=== PATIENT | male | born 1985 | race Caucasian/White ===

== ENCOUNTER 2019-01-31 23:21 | Emergency (ER) | payer OTHER ==
[~2019-01-31] VITALS: Ht 177.8 cm; Wt 73.5 kg
[2019-01-31] MEDS ORDERED: LEVAQUIN 500 M500 M3 PO (23:53)
[2019-01-31] MEDS ORDERED: HYDROCODON-ACE1 EAC8 PO (23:53)
[2019-01-31] MEDS ORDERED: ROBAXIN 750 MG750 MG PO (23:54)
[2019-02-01 00:11] VITALS: BP 128/88
== END 2019-02-01 00:11 | disposition home or self-care (01) ==
LOC: M.ERS 23:21
DX: S60.221A Contusion of right hand, initial encounter (principal); S60.211A Contusion of right wrist, initial encounter; S60.222A Contusion of left hand, initial encounter; S00.212A Abrasion of left eyelid and periocular area, initial encounter; M79.18 Myalgia, other site; M54.6 Pain in thoracic spine; M54.2 Cervicalgia; V89.2XXA Person injured in unspecified motor-vehicle accident, traffic, initial encounter; Y92.89 Other specified places as the place of occurrence of the external cause; Y93.89 Activity, other specified; Y99.8 Other external cause status

== ENCOUNTER 2019-02-09 16:30 | Emergency (ER) | payer OTHER ==
[~2019-02-09] VITALS: Ht 180.3 cm; Wt 68.0 kg
[~2019-02-09 16:30] MED LIST: HYDROCODON-ACE1 EAC8 PO; LEVAQUIN 500 M500 M3 PO; ROBAXIN 750 MG750 MG PO
[2019-02-09] MEDS ORDERED: MEDROLDOSEPACK PO (17:02)
[2019-02-09] MEDS ORDERED: IBUPROFEN 800800 M1 PO (17:03)
[2019-02-09] MEDS ORDERED: NORCO 5-325 TA1 EAC1 PO (17:04)
[2019-02-09 17:25] VITALS: BP 107/72
== END 2019-02-09 17:27 | disposition home or self-care (01) ==
LOC: M.ERS 16:30
DX: M54.12 Radiculopathy, cervical region (principal); M54.9 Dorsalgia, unspecified; M41.9 Scoliosis, unspecified; Z88.0 Allergy status to penicillin; Z91.011 Allergy to milk products

== ENCOUNTER 2019-02-20 19:23 | Emergency (ER) | payer OTHER ==
[~2019-02-20] VITALS: Ht 177.8 cm; Wt 73.1 kg
[~2019-02-20 19:23] MED LIST changes: +IBUPROFEN 800800 M1 PO; +MEDROLDOSEPACK PO; +NORCO 5-325 TA1 EAC1 PO
[2019-02-20] MEDS ORDERED: FLEXERIL PO (19:52)
[2019-02-20] MEDS ORDERED: HYDROCODON-ACE1 EAC7 PO (19:52)
[2019-02-20] MEDS ORDERED: IBUPROFEN 800800 MG PO (19:52)
[2019-02-20 19:59] VITALS: BP 140/80
== END 2019-02-20 19:59 | disposition home or self-care (01) ==
LOC: M.ERS 19:23
DX: M54.12 Radiculopathy, cervical region (principal); Z90.49 Acquired absence of other specified parts of digestive tract; Z88.0 Allergy status to penicillin; Z91.018 Allergy to other foods